=== PATIENT | male | born 1945 | race Caucasian/White ===

== ENCOUNTER → 2019-08-18 | Outpatient (CLI) | payer MEDICARE ==
[~2019-08-18] MED LIST: ACET-2267 PO; ACHD5005 PO; ALBU90AE IH; ASPI-586 PO; BENZ1LOZ61 PO; BISA10SU8 RC; BUDE10.22 IH; CARV6.252 PO; CEPH-507 PO; CLOP75TA69 PO; FURO-125 PO; GUAI600T43 PO; IPRA0.2S51 IH; LORA0.5T PO; LORA10CA PO; MELA1TAB10 PO; MELO15TA39 PO; MOM10U PO; MULT-593 PO; NFCHLORHGL MM; NITR0.4T39 SL; OMEP20CA18 PO; PRAV40TA2 PO; ROPI0.253 PO; SENN8.6T68 PO; TAMS0.4C2 PO
[2019-08-18 13:10] LABS: BILIRUBIN,TOTAL 0.6 MG/DL (0.1-1.0); BUN/CREATININE RATIO 19; CALCIUM 9.1 MG/DL (8.5-10.1); CARBON DIOXIDE 27 MMOL/L (21-32); CHLORIDE 99 MMOL/L (98-107); GFR ESTIMATED > 60; GLUCOSE 108 MG/DL (70-105); POTASSIUM 4.5 MMOL/L (3.6-5.0); SODIUM 135 MMOL/L (135-145)
[2019-08-18 13:11] LABS: ALANINE AMINOTRANSFERASE 18 U/L (0-55); ALKALINE PHOSPHATASE 66 U/L (40-136); TOTAL PROTEIN 6.8 GM/DL (6.4-8.2)
[2019-08-18 15:35] LABS: CHOLESTEROL 166 MG/DL (< 200); HDL CHOLESTEROL 49 MG/DL (40-60); TRIGLYCERIDES 88 MG/DL (<150); VLDL CHOLESTEROL 18 MG/DL (5-40)
== END ==
LOC: LAB FS 10:53
PROVIDERS: ATTEND Family Medicine
DX: E78.00 Pure hypercholesterolemia, unspecified (principal)
CPT/HCPCS: 36415; 80053; 80061

== ENCOUNTER → 2020-02-25 | Outpatient (CLI) | payer MEDICARE ==
[2020-02-25 09:37] LABS: BUN/CREATININE RATIO 20; CARBON DIOXIDE 26 MMOL/L (21-32); CHLORIDE 99 MMOL/L (98-107); CREATININE SERUM 0.84 MG/DL (0.60-1.30); GFR ESTIMATED > 60; GLUCOSE 97 MG/DL (70-105); POTASSIUM 4.3 MMOL/L (3.6-5.0); SODIUM 136 MMOL/L (135-145)
[2020-02-25 09:38] LABS: ALANINE AMINOTRANSFERASE 13 U/L (0-55); ALBUMIN 4.1 GM/DL (3.2-4.5); ALKALINE PHOSPHATASE 75 U/L (40-136); BILIRUBIN,TOTAL 0.4 MG/DL (0.1-1.0); CALCIUM 9.4 MG/DL (8.5-10.1); TOTAL PROTEIN 6.9 GM/DL (6.4-8.2)
[2020-02-25 15:31] LABS: CHOLESTEROL 197 MG/DL (< 200); HDL CHOLESTEROL 52 MG/DL (40-60); TRIGLYCERIDES 62 MG/DL (<150); VLDL CHOLESTEROL 12 MG/DL (5-40)
== END ==
LOC: LAB FS 08:34
PROVIDERS: ATTEND Family Medicine
DX: I10 Essential (primary) hypertension (principal)
CPT/HCPCS: 36415; 80053; 80061

== ENCOUNTER → 2020-08-25 | Outpatient (CLI) | payer MEDICARE ==
[2020-08-25 09:38] LABS: ALANINE AMINOTRANSFERASE 14 U/L (0-55); ALBUMIN 3.9 GM/DL (3.2-4.5); ALKALINE PHOSPHATASE 75 U/L (40-136); BILIRUBIN,TOTAL 0.5 MG/DL (0.1-1.0); BUN/CREATININE RATIO 24; CALCIUM 9.1 MG/DL (8.5-10.1); CARBON DIOXIDE 26 MMOL/L (21-32); CHLORIDE 104 MMOL/L (98-107); CREATININE SERUM 0.72 MG/DL (0.60-1.30); GFR ESTIMATED > 60; GLUCOSE 98 MG/DL (70-105); SODIUM 139 MMOL/L (135-145); TOTAL PROTEIN 6.6 GM/DL (6.4-8.2)
[2020-08-25 14:52] LABS: CHOLESTEROL 127 MG/DL (< 200); HDL CHOLESTEROL 48 MG/DL (40-60); TRIGLYCERIDES 48 MG/DL (<150); VLDL CHOLESTEROL 10 MG/DL (5-40)
== END ==
LOC: LAB FS 08:49
PROVIDERS: ATTEND Family Medicine
DX: I10 Essential (primary) hypertension (principal); E78.5 Hyperlipidemia, unspecified
CPT/HCPCS: 36415; 80053; 80061

== ENCOUNTER 2021-02-07 14:51 | Emergency (ER) | payer MEDICARE ==
[~2021-02-07] VITALS: Ht 175 cm; Wt 68.0 kg
--- NOTE | 2021-02-07 15:32 | ED General ---
General Chief Complaint: Respiratory Problems Stated Complaint: SOB Source of Information: Patient History of Present Illness Date Seen by Provider: Feb 07, 2021 Time Seen by Provider: 15:14 Initial Comments 75-year-old male presenting with complaints of increasing shortness of breath over the last week. He has had cough with productive white sputum. He denies having any fever or chills. He gets more winded with exertion. He has a history of chronic bronchitis. He states that his pulse oximeter he has at home to check his oxygen has been reading in the 88 to 89% range. Since it was continue to read low for him when he came into the emergency department with his symptoms. He denies any ill contacts. He has had no pain in his chest, nausea, vomiting, diarrhea, headache, change in vision. He does use at least 2 inhalers for his breathing. Timing/Duration: 1 Week Severity: Moderate Modifying Factors: worse with Movement Associated Systoms: No Chest Pain; Cough; No Diaphoresis, No Fever/Chills, No Headaches, No Loss of Appetite, No Malaise, No Nausea/Vomiting, No Rash, No Seizure; Shortness of Air; No Syncope, No Weakness Allergies and Home Medications Allergies Coded Allergies: levofloxacin (Verified Allergy, Severe, ANAPHYLAXIS, 03/27/15) Patient Home Medication List Home Medication List Reviewed: Yes Acetaminophen (Tylenol Extra Strength) 500 Mg Tablet, 500 MG PO Q6H PRN for PAIN Prescribed by: RENAY ALFARO on 03/27/15 1207 Albuterol Sulfate (Proair Respiclick) 90 Mcg Aer.pow.ba, 90 MCG IH Q4H PRN for SHORTNESS OF BREATH Prescribed by: RENAY ALFARO on 03/27/15 1207 Aspirin (Aspir 81) 81 Mg Tablet.dr, 81 MG PO DAILY Prescribed by: RENAY ALFARO on 03/27/15 1043 Benzocaine/Menthol (Cepacol Sore Throat Lozenge) 1 Each Lozenge, 3 EACH PO TID PRN for SORE THROAT Prescribed by: RENAY ALFARO on 03/27/15 1207 Bisacodyl (Bisacodyl) 10 Mg Supp.rect, 10 MG RC DAILY PRN for CONSTIPATION Prescribed by: RENAY ALFARO on 03/27/15 1207 Budesonide/Formoterol Fumarate (Symbicort 80-4.5 Mcg Inhaler) 10.2 Gm Hfa.aer.ad, 2 PUFF IH BID Prescribed by: RENAY ALFARO on 03/27/15 120 Carvedilol (Carvedilol) 6.25 Mg Tablet, 6.25 MG PO BID Prescribed by: RENAY ALFARO on 03/27/15 120 Cephalexin (Keflex) 500 Mg Capsule, 500 MG PO TID Prescribed by: RENAY ALFARO on 03/27/15 1349 Chlorhexidine Gluconate (Chlorhexidine Gluconate) 473 Ml Mouthwash, 15 ML MM QID PRN for DRY MOUTH Prescribed by: RENAY ALFARO on 03/27/15 120 Clopidogrel Bisulfate (Plavix) 75 Mg Tablet, 75 MG PO DAILY Prescribed by: RENAY ALFARO on 03/27/15 1043 Furosemide (Lasix) 20 Mg Tablet, 20 MG PO DAILY PRN for DYSPNEA Prescribed by: RENAY ALFARO on 03/27/15 120 Guaifenesin (Mucinex) 600 Mg Tab.er.12h, 600 MG PO BID Prescribed by: RENAY ALFARO on 03/27/15 120 Hydrocodone Bit/Acetaminophen (Lortab 5 Mg Tablet) 1 Each Tablet, 1-2 TAB PO Q4HR PRN for PAIN Prescribed by: RENAY ALFARO on 03/27/15 1349 Ipratropium [place] (Ipratropium [place]) 0.2 Mg/1 Ml Solution, 0.5 MG IH Q4H PRN for SHORTNESS OF BREATH Prescribed by: RENAY ALFARO on 03/27/15 120 Loratadine (Claritin) 10 Mg Capsule, 10 MG PO DAILY Prescribed by: RENAY ALFARO on 03/27/15 120 Lorazepam (Lorazepam) 0.5 Mg Tablet, 0.5-1 TAB PO Q8H PRN for ANXIETY Prescribed by: RENAY ALFARO on 03/27/15 120 Magnesium Hydroxide (Milk of Magnesia) 2,400 Mg/10 Ml Oral.susp, 10 ML PO DAILY Prescribed by: RENAY ALFARO on 03/27/15 1207 Melatonin/Pyridoxine (Melatonin 3 mg Tablet) 1 Each Tablet, 1 EACH PO HS PRN for INSOMNIA Prescribed by: RENAY ALFARO on 03/27/151206 Meloxicam (Meloxicam) 15 Mg Tablet, 15 MG PO DAILY Prescribed by: RENAY ALFARO on 03/27/151206 Multivitamin with Minerals (Multiple Vitamin) 1 Each Tablet, 1 EACH PO DAILY Prescribed by: RENAY ALFARO on 03/27/151206 Nitroglycerin (Nitroglycerin) 0.4 Mg Tab.subl, 0.4 MG SL UD Prescribed by: RENAY ALFARO on 03/27/151206 Omeprazole (Omeprazole) 20 Mg Capsule.dr, 20 MG PO TID Prescribed by: RENAY ALFARO on 03/27/151206 Pravastatin Sodium (Pravastatin Sodium) 40 Mg Tablet, 40 MG PO DAILY Prescribed by: RENAY ALFARO on 03/27/151206 Prednisone (Prednisone) 20 Mg Tab, 40 MG PO DAILY Prescribed by: LIGIA SORENSEN on 02/07/21 1654 Ropinirole HCl (Ropinirole HCl) 0.25 Mg Tablet, 0.25 MG PO HS Prescribed by: RENAY ALFARO on 03/27/15 120 Sennosides (Sennosides) 8.6 Mg Tablet, 8.6 MG PO DAILY Prescribed by: RENAY ALFARO on 03/27/151206 Tamsulosin HCl (Tamsulosin HCl) 0.4 Mg Cap.er.24h, 0.4 MG PO DAILY Prescribed by: RENAY ALFARO on 03/27/151206 Review of Systems Review of Systems Constitutional: No chills, No fever EENTM: no symptoms reported Respiratory: see HPI Cardiovascular: no symptoms reported Gastrointestinal: no symptoms reported Genitourinary: no symptoms reported Musculoskeletal: no symptoms reported Skin: no symptoms reported Psychiatric/Neurological: No Symptoms Reported Past Fdgbxzi-Asdckj-Fnrnxm Hx Patient Social History Tobacco Use?: Yes Smoking Status: Heavy Tobacco Smoker Use of E-Cig and/or Vaping dev: No Substance use?: No Alcohol Use?: Yes Alcohol type: Beer Alcohol Frequency: Daily Past Medical History Respiratory: Yes Chronic Bronchitis Currently Using CPAP: No Currently Using BIPAP: No Reproductive Disorders: No Hiatal Hernia Arthritis Hearing Impairment: Hard of Hearing Skin Anxiety, Depression Adverse Reaction/Blood Tranf: No Family Medical History Cardiovascular disease 19 FATHER 19 MOTHER Diabetes mellitus 19 MOTHER Hypertension 19 MOTHER Neoplasm G8 BROTHER Physical Exam Vital Signs Vital Signs - First Documented 02/07/21 15:23 Temp 36.8 Pulse 63 Resp 24 B/P (MAP) 166/84 (111) Pulse Ox 100 O2 Delivery Room Air Capillary Refill : Height, Weight, BMI Height: 5'9.00" Weight: 152lbs. 9.0oz. 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 Norm as Tested Skin: Normal Color, Warm/Dry Focused Exam Lactate Level 02/07/21 15:05: Lactic Acid Level 0.93 Lactic Acid Level Laboratory Tests Test 02/07/21 15:05 Lactic Acid Level 0.93 MMOL/L (0.50-2.00) Progress/Results/Core Measures Suspected Sepsis SIRS Temperature: Pulse: Respiratory Rate: Laboratory Tests 02/07/21 15:05: White Blood Count 9.6 Blood Pressure / Mean: 02/07/21 15:05: Lactic Acid Level 0.93 Laboratory Tests 02/07/21 15:05: Creatinine 0.86, INR Comment 1.0, Platelet Count 219, Total Bilirubin 0.9 Results/Orders Lab Results Laboratory Tests Test 02/07/21 15:04 02/07/21 15:05 02/07/21 15:18 02/07/21 15:23 Range/Units Influenza Type A (RT-PCR) Not Detected Not Detecte Influenza Type B (RT-PCR) Not Detected Not Detecte SARS-CoV-2 RNA (RT-PCR) Not Detected Not Detecte White Blood Count 9.6 4.3-11.0 10^3/uL Red Blood Count 5.24 4.30-5.52 10^6/uL Hemoglobin 16.5 13.3-17.7 g/dL Hematocrit 49 40-54 % Mean Corpuscular Volume 93 80-99 fL Mean Corpuscular Hemoglobin 31 25-34 pg Mean Corpuscular Hemoglobin Concent 34 32-36 g/dL Red Cell Distribution Width 13.3 10.0-14.5 % Platelet Count 219 130-400 10^3/uL Mean Platelet Volume 9.3 9.0-12.2 fL Immature Granulocyte % (Auto) 1 % Neutrophils (%) (Auto) 65 42-75 % Lymphocytes (%) (Auto) 19 12-44 % Monocytes (%) (Auto) 11 0-12 % Eosinophils (%) (Auto) 4 0-10 % Basophils (%) (Auto) 1 0-10 % Neutrophils # (Auto) 6.2 1.8-7.8 X 10^3 Lymphocytes # (Auto) 1.8 1.0-4.0 X 10^3 Monocytes # (Auto) 1.0 0.0-1.0 X 10^3 Eosinophils # (Auto) 0.4 H 0.0-0.3 10^3/uL Basophils # (Auto) 0.1 0.0-0.1 10^3/uL Immature Granulocyte # (Auto) 0.1 0.0-0.1 10^3/uL Prothrombin Time 13.4 12.2-14.7 SEC INR Comment 1.0 0.8-1.4 Activated Partial Thromboplast Time 32 24-35 SEC Sodium Level 130 L 135-145 MMOL/L Potassium Level 4.5 3.6-5.0 MMOL/L Chloride Level 91 L 98-107 MMOL/L Carbon Dioxide Level 27 21-32 MMOL/L Anion Gap 12 5-14 MMOL/L Blood Urea Nitrogen 17 7-18 MG/DL Creatinine 0.86 0.60-1.30 MG/DL Estimat Glomerular Filtration Rate 87 BUN/Creatinine Ratio 20 Glucose Level 97 70-105 MG/DL Lactic Acid Level 0.93 0.50-2.00 MMOL/L Calcium Level 9.8 8.5-10.1 MG/DL Corrected Calcium 9.5 8.5-10.1 MG/DL Total Bilirubin 0.9 0.1-1.0 MG/DL Aspartate Amino Transf (AST/SGOT) 22 5-34 U/L Alanine Aminotransferase (ALT/SGPT) 15 0-55 U/L Alkaline Phosphatase 100 40-136 U/L Troponin I < 0.30 <0.30 NG/ML C-Reactive Protein 3.07 H <0.50 MG/DL Pro-B-Type Natriuretic Peptide 428.2 H <75.0 PG/ML Total Protein 8.2 6.4-8.2 GM/DL Albumin 4.4 3.2-4.5 GM/DL Blood Gas Puncture Site L RADIAL Blood Gas Patient Temperature 36.3 Arterial Blood pH 7.43 7.37-7.43 Arterial Blood Partial Pressure CO2 42 35-45 MMHG Arterial Blood Partial Pressure O2 59 L 79-93 MMHG Arterial Blood HCO3 28 H 23-27 MMOL/L Arterial Blood Total CO2 29.2 21.0-31.0 MMOL/L Arterial Blood Oxygen Saturation 91 L 94-100 % Arterial Blood Base Excess 3.2 H -2.5-2.5 MMOL/L Yakov Test YES-POS Blood Gas Ventilator Setting NO Blood Gas Inspired Oxygen ROOM AIR Urine Color ORANGE Urine Clarity CLEAR Urine pH 5.5 5-9 Urine Specific [place] 1.015 L 1.016-1.022 Urine Protein TRACE H NEGATIVE Urine Glucose (UA) NEGATIVE NEGATIVE Urine Ketones 1+ H NEGATIVE Urine Nitrite NEGATIVE NEGATIVE Urine Bilirubin NEGATIVE NEGATIVE Urine Urobilinogen 0.2 < = 1.0 MG/DL Urine Leukocyte Esterase NEGATIVE NEGATIVE Urine RBC (Auto) 3+ H NEGATIVE Urine RBC 5-10 H /HPF Urine WBC 0-2 /HPF Urine Squamous Epithelial Cells 0-2 /HPF Urine Crystals NONE /LPF Urine Bacteria NEGATIVE /HPF Urine Casts PRESENT /LPF Urine Hyaline Casts 2-5 H /LPF Urine Mucus MODERATE H /LPF Urine Culture Indicated NO My Orders Orders - LIGIA SORENSEN MD Monitor-Rhythm Ecg Trace Only (02/07/21 15:19) Ed Iv/Invasive Line Start (02/07/21 15:19) Cbc With Automated Diff (02/07/21 15:19) Comprehensive Metabolic Panel (02/07/21 15:19) Crp Fs (02/07/21 15:19) Troponin I Fs (02/07/21 15:19) Protime With Inr (02/07/21 15:19) Partial Thromboplastin Time (02/07/21 15:19) Ekg Tracing (02/07/21 15:19) Arterial Blood Gas (02/07/21 15:19) Covid 19 Inhouse Test (02/07/21 15:19) Influenza A And B By Pcr (02/07/21 15:19) Blood Culture (02/07/21 15:21) Lactic Acid Analyzer (02/07/21 15:21) Chest 1 View Ap/Pa Only (02/07/21 15:21) Ua Culture If Indicated (02/07/21 15:25) Sputum Culture (02/07/21 15:25) Probnp Fs (02/07/21 15:19) Vital Signs/I&O 02/07/21 02/07/21 15:23 17:40 Temp 36.8 Pulse 63 Resp 24 66 B/P (MAP) 166/84 (111) 143/65 Pulse Ox 100 99 O2 Delivery Room Air Capillary Refill : Progress Note #1: Progress Note Obtain basic labs including blood cultures and lactic acid. ABG since he reports low oxygen saturations although are O2 sat on his forehead was reading 100%. Chest x-ray to evaluate for pneumonia. Covid swab and influenza swab to check for infection. Cardiac enzymes including an EKG to evaluate his heart. Differential diagnosis includes COPD exacerbation, pneumonia, Covid, upper respiratory infection, viral syndrome, myocardial infarction, CHF Progress Note #2: Progress Note CBC and chemistry appear stable without acute signs of sepsis or overwhelming infection. The sodium was slightly low at 130. He does have an elevated CRP. His troponin was negative. His proBNP was slightly elevated but when age- adjusted is normal. He has no acute infiltrate on his chest x-ray. His EKG shows a sinus rhythm without ectopy or ischemia. His urine did not show signs of infection. His blood gas had a normal pH of 7.43 with pCO2 of 42, pO2 of 59 for O2 sat 91%. He continues to show 99-100% on room air for his pulse oximetry. Influenza and Covid are pending. This may be more COPD exacerbation and would improve with steroid but no definite sign of infection. Progress Note #3: Progress Note Patient counseled on results and continues to be 98 to 100% on room air in the emergency department. Will discharge to home with a steroid burst prescribed. Advised to continue his Combivent and Breo. Check back with the clinic for continued concerns and problems. Return to the ER for worsening symptoms or concerns ECG Initial ECG Impression Date: Feb 07, 2021 Initial ECG Impression Time: 15:14 Initial ECG Rate: 60 Initial ECG Rhythm: Normal Sinus Initial ECG Comparisson: No Previous ECG Available Comment Normal sinus rhythm with a heart rate of [address] interval 152 ms. QT interval 434 ms with a QTc interval 434 ms. There is no acute ST elevation. There is no prior tracing available for comparison. Diagnostic Imaging Diagonstic Imaging: Xray Plain Films/CT/US/NM/MRI: chest Comments [facility] [place], [place] NAME: WONG DELATORRE [facility] REC#: [id number] PT STATUS: REG ER : 1945 PHYSICIAN: LIGIA SORENSEN MD ADMIT DATE: 02/07/21/ER FS Draft Date of Exam:02/07/21 CHEST 1 VIEW AP/PA ONLY EXAMINATION: Chest, one view. HISTORY: Cough, COVID. COMPARISON: None available. FINDINGS: Heart size and pulmonary vasculature are normal. There is elevation of the left hemidiaphragm. Minimal left basilar atelectasis. No consolidation, pleural effusion, or pneumothorax. The osseous structures are intact. IMPRESSION: 1. No acute radiographic abnormality in the chest. Dictated on workstation # [id number] Dict: 02/07/21 1532 Trans: 02/07/21 1534 [id number] Interpreted by: DIPIKA MARCELO DO Electronically signed by: Reviewed: Reviewed by Me Departure Impression Primary Impression: Dyspnea on exertion Additional Impression: Chronic bronchitis with acute exacerbation Disposition: 01 HOME, SELF-CARE Condition: Stable Departure-Patient Inst. Decision time for Depature: 16:52 Referrals: HARI CARLSON MD (PCP/Family) Primary Care Physician Patient Instructions: Chronic Bronchitis (DC), Shortness of Breath, Adult ED Add. Discharge Instructions: Continue on your home medicines. Use the steroid to help with cough and shortness of breath. Check back with clinic about continued symptoms and if you take the steroid to see when you could get your Covid booster. Use plain Mucinex to help loosen cough and congestion to help with your breathing. When checking your oxygen level with the pulse oximetry, make sure your fingers and hands are warm and you are getting good circulation to get the most accurate reading. All discharge instructions reviewed with patient and/or family. Voiced understanding. Scripts Prednisone (Prednisone) 20 Mg Tab 40 MG PO DAILY for bronchitis exacerbation for 5 Days, #10 TAB 0 Refills Prov: LIGIA SORENSEN MD 02/07/21 LIGIA SORENSEN MD Feb 07, 2021 15:32
--- NOTE | 2021-02-07 15:35 | Diagnostic Imaging Report ---
EXAMINATION: Chest, one view. HISTORY: Cough, COVID. COMPARISON: None available. FINDINGS: Heart size and pulmonary vasculature are normal. There is elevation of the left hemidiaphragm. Minimal left basilar atelectasis. No consolidation, pleural effusion, or pneumothorax. The osseous structures are intact. IMPRESSION: 1. No acute radiographic abnormality in the chest. Dictated by: Dictated on workstation # [id number]
[2021-02-07 15:39] LABS: ABG BASE EXCESS 3.2 MMOL/L (-2.5-2.5); ABG OXYGEN SATURATION 91 % (94-100); ABG PCO2 42 MMHG (35-45); ABG PH 7.43 (7.37-7.43); ABG PO2 59 MMHG (79-93); ABG TCO2 29.2 MMOL/L (21.0-31.0); ALLENS TEST YES-POS
[2021-02-07 15:40] LABS: INSPIRED O2 ROOM AIR; PATIENT TEMP 36.3; VENTILATOR NO
[2021-02-07 16:00] LABS: BASOPHILS % (AUTO) 1 % (0-10); EOSINOPHILS % (AUTO) 4 % (0-10); HEMATOCRIT 49 % (40-54); HEMOGLOBIN 16.5 g/dL (13.3-17.7); LYMPHOCYTES # (AUTO) 1.8 X 10^3 (1.0-4.0); LYMPHOCYTES % (AUTO) 19 % (12-44); MEAN CORPUSCULAR HEMOGLOBIN 31 pg (25-34); MEAN CORPUSCULAR HGB CONC 34 g/dL (32-36); MEAN CORPUSCULAR VOLUME 93 fL (80-99); MEAN PLATELET VOLUME 9.3 fL (9.0-12.2); MONOCYTES % (AUTO) 11 % (0-12); NEUTROPHILS # (AUTO) 6.2 X 10^3 (1.8-7.8); NEUTROPHILS % (AUTO) 65 % (42-75); PLATELET COUNT 219 10^3/uL (130-400); WHITE BLOOD COUNT 9.6 10^3/uL (4.3-11.0)
[2021-02-07 16:01] LABS: CLARITY,URINE CLEAR; COLOR,URINE ORANGE; PH,URINE 5.5 (5-9)
[2021-02-07 16:01] LABS: BASOPHILS # (AUTO) 0.1 10^3/uL (0.0-0.1); EOSINOPHILS # (AUTO) 0.4 10^3/uL (0.0-0.3); PROTHROMBIN TIME PATIENT 13.4 SEC (12.2-14.7)
[2021-02-07 16:02] LABS: BACTERIA,URINE NEGATIVE /HPF; BILIRUBIN,URINE NEGATIVE (NEGATIVE); GLUCOSE, URINE (UA) NEGATIVE (NEGATIVE); KETONES,URINE 1+ (NEGATIVE); LEUKOCYTE ESTERASE ,URINE NEGATIVE (NEGATIVE); NITRITE,URINE NEGATIVE (NEGATIVE); PROTEIN,URINE TRACE (NEGATIVE); SQUAMOUS EPITHELIAL CELL,UR 0-2 /HPF; WBC,URINE 0-2 /HPF
[2021-02-07 16:03] LABS: ALANINE AMINOTRANSFERASE 15 U/L (0-55); ALKALINE PHOSPHATASE 100 U/L (40-136); BILIRUBIN,TOTAL 0.9 MG/DL (0.1-1.0); BUN/CREATININE RATIO 20; CALCIUM 9.8 MG/DL (8.5-10.1); CARBON DIOXIDE 27 MMOL/L (21-32); CHLORIDE 91 MMOL/L (98-107); CREATININE SERUM 0.86 MG/DL (0.60-1.30); GFR ESTIMATED 87; GLUCOSE 97 MG/DL (70-105); POTASSIUM 4.5 MMOL/L (3.6-5.0); SODIUM 130 MMOL/L (135-145)
[2021-02-07 16:04] LABS: ALBUMIN 4.4 GM/DL (3.2-4.5); TOTAL PROTEIN 8.2 GM/DL (6.4-8.2)
[2021-02-07] MEDS ORDERED: PRD20T PO (16:54)
[2021-02-07 17:40] VITALS: BP 143/65
== END 2021-02-07 17:00 | disposition home or self-care (01) ==
LOC: EDUNIT# 14:51 → ER FS 14:52
DX: R06.09 Other forms of dyspnea (principal); J44.1 Chronic obstructive pulmonary disease with (acute) exacerbation; F41.9 Anxiety disorder, unspecified; F17.290 Nicotine dependence, other tobacco product, uncomplicated; Z20.822 Contact with and (suspected) exposure to COVID-19; Z79.01 Long term (current) use of anticoagulants; Z79.82 Long term (current) use of aspirin; Z79.899 Other long term (current) drug therapy
CPT/HCPCS: 36415; 71045; 80053; 81000; 82805; 83605; 83880; 84484; 85025; 85610; 85730; 86141; 87040; 87070; 87077; 87186; 87205; 87636; 93005

== ENCOUNTER → 2021-02-28 | Outpatient (CLI) | payer MEDICARE ==
[~2021-02-28] MED LIST changes: +PRD20T PO
[2021-02-28 11:49] LABS: ALBUMIN 3.8 GM/DL (3.2-4.5); BILIRUBIN,TOTAL 0.8 MG/DL (0.1-1.0); CALCIUM 9.4 MG/DL (8.5-10.1); CREATININE SERUM 0.77 MG/DL (0.60-1.30); POTASSIUM 4.1 MMOL/L (3.6-5.0); TOTAL PROTEIN 7.4 GM/DL (6.4-8.2)
== END ==
LOC: LAB FS 10:09
PROVIDERS: ATTEND Family Medicine
DX: I10 Essential (primary) hypertension (principal)
CPT/HCPCS: 36415; 80053; 80061

== ENCOUNTER 2023-01-17 22:10 | Emergency (ER) | payer MEDICARE ==
[~2023-01-17] VITALS: Ht 172.7 cm; Wt 65.1 kg
[~2023-01-17 22:10] MED LIST changes: -BENZ1LOZ61 PO; +BENZ1LOZ74 PO; +CLOP-31 PO; -CLOP75TA69 PO; -ROPI0.253 PO; +ROPI0.2533 PO
[2023-01-17 22:44] LABS: BASOPHILS # (AUTO) 0.1 10^3/uL (0.0-0.1); BASOPHILS % (AUTO) 1 % (0-10); EOSINOPHILS # (AUTO) 0.3 10^3/uL (0.0-0.3); EOSINOPHILS % (AUTO) 4 % (0-10); HEMATOCRIT 49 % (40-54); HEMOGLOBIN 16.3 g/dL (13.3-17.7); LYMPHOCYTES # (AUTO) 1.6 10^3/uL (1.0-4.0); LYMPHOCYTES % (AUTO) 24 % (12-44); MEAN CORPUSCULAR HEMOGLOBIN 32 pg (25-34); MEAN CORPUSCULAR HGB CONC 33 g/dL (32-36); MEAN CORPUSCULAR VOLUME 94 fL (80-99); MEAN PLATELET VOLUME 8.7 fL (9.0-12.2); MONOCYTES # (AUTO) 0.7 10^3/uL (0.0-1.0); MONOCYTES % (AUTO) 11 % (0-12); NEUTROPHILS # (AUTO) 3.8 10^3/uL (1.8-7.8); NEUTROPHILS % (AUTO) 59 % (42-75); PLATELET COUNT 194 10^3/uL (130-400); WHITE BLOOD COUNT 6.5 10^3/uL (4.3-11.0)
[2023-01-17] MEDS ORDERED: NS 100 ML (IVPB) BAG IV ONE (22:45)
[2023-01-17] MEDS ORDERED: HOLD METFORMIN - RECEIVED CONTRAST 20 ML VIAL IV SCH (22:45)
[2023-01-17] MEDS ORDERED: IOHEXOL 350 MG/ML 100 ML (OMNIPAQUE 350) VIAL IV ONE (22:45)
--- NOTE | 2023-01-17 22:45 | ED General ---
General Stated Complaint: COUGHING UP BLOOD Source of Information: Patient Exam Limitations: No Limitations History of Present Illness Date Seen by Provider: Jan 17, 2023 Time Seen by Provider: 22:13 Initial Comments 77-year-old male with past medical history of CAD with stenting on Plavix and prior lung cancer status post radiation coming in due to hemoptysis. Started coughing up blood on Sunday, its increased in amount and frequency since then. Does feel more short of breath as well which is unusual for him. Denies any chest pain, fever, lower extremity swelling or pain, recent surgery, prior history of DVT or PE, or any other concerns. This is never occurred before. Allergies and Home Medications Allergies Coded Allergies: levofloxacin (Verified Allergy, Severe, ANAPHYLAXIS, 03/27/15) Patient Home Medication List Home Medication List Reviewed: Yes Acetaminophen (Tylenol Extra Strength) 500 Mg Tablet, 500 MG PO Q6H PRN for PAIN Prescribed by: RENAY ALFARO on 03/27/15 1207 Albuterol Sulfate (Proair Respiclick) 90 Mcg Aer.pow.ba, 90 MCG IH Q4H PRN for SHORTNESS OF BREATH Prescribed by: RENAY ALFARO on 03/27/15 1207 Aspirin (Aspir 81) 81 Mg Tablet.dr, 81 MG PO DAILY Prescribed by: RENAY ALFARO on 03/27/15 1043 Benzocaine/Menthol (Cepacol Sore Throat Lozenge) 1 Each Lozenge, 3 EACH PO TID PRN for SORE THROAT Prescribed by: RENAY ALFARO on 03/27/15 1207 Bisacodyl (Bisacodyl) 10 Mg Supp.rect, 10 MG RC DAILY PRN for CONSTIPATION Prescribed by: RENAY ALFARO on 03/27/15 1207 Budesonide/Formoterol Fumarate (Symbicort 80-4.5 Mcg Inhaler) 10.2 Gm Hfa.aer.ad, 2 PUFF IH BID Prescribed by: RENAY ALFARO on 03/27/15 1207 Carvedilol (Carvedilol) 6.25 Mg Tablet, 6.25 MG PO BID Prescribed by: RENAY ALFARO on 03/27/15 1207 Cephalexin (Keflex) 500 Mg Capsule, 500 MG PO TID Prescribed by: RENAY ALFARO on 03/27/15 1349 Chlorhexidine Gluconate (Chlorhexidine Gluconate) 473 Ml Mouthwash, 15 ML MM QID PRN for DRY MOUTH Prescribed by: RENAY ALFARO on 03/27/15 120 Clopidogrel Bisulfate (Plavix) 75 Mg Tablet, 75 MG PO DAILY Prescribed by: RENAY ALFARO on 03/27/15 1043 Furosemide (Lasix) 20 Mg Tablet, 20 MG PO DAILY PRN for DYSPNEA Prescribed by: RENAY ALFARO on 03/27/15 120 Guaifenesin (Mucinex) 600 Mg Tab.er.12h, 600 MG PO BID Prescribed by: RENAY ALFARO on 03/27/15 120 Hydrocodone Bit/Acetaminophen (Lortab 5 Mg Tablet) 1 Each Tablet, 1-2 TAB PO Q4HR PRN for PAIN Prescribed by: RENAY ALFARO on 03/27/15 134 Ipratropium [place] (Ipratropium [place]) 0.2 Mg/1 Ml Solution, 0.5 MG IH Q4H PRN for SHORTNESS OF BREATH Prescribed by: RENAY ALFARO on 03/27/15 120 Loratadine (Claritin) 10 Mg Capsule, 10 MG PO DAILY Prescribed by: RENAY ALFARO on 03/27/15 120 Lorazepam (Lorazepam) 0.5 Mg Tablet, 0.5-1 TAB PO Q8H PRN for ANXIETY Prescribed by: RENAY ALFARO on 03/27/15 120 Magnesium Hydroxide (Milk of Magnesia) 2,400 Mg/10 Ml Oral.susp, 10 ML PO DAILY Prescribed by: RENAY ALFARO on 03/27/15 120 Melatonin/Pyridoxine (Melatonin 3 mg Tablet) 1 Each Tablet, 1 EACH PO HS PRN for INSOMNIA Prescribed by: RENAY ALFARO on 03/27/15 120 Meloxicam (Meloxicam) 15 Mg Tablet, 15 MG PO DAILY Prescribed by: RENAY ALFARO on 03/27/15 120 Multivitamin with Minerals (Multiple Vitamin) 1 Each Tablet, 1 EACH PO DAILY Prescribed by: RENAY ALFARO on 03/27/15 120 Nitroglycerin (Nitroglycerin) 0.4 Mg Tab.subl, 0.4 MG SL UD Prescribed by: RENAY ALFARO on 03/27/15 120 Omeprazole (Omeprazole) 20 Mg Capsule.dr, 20 MG PO TID Prescribed by: RENAY ALFARO on 03/27/15 120 Pravastatin Sodium (Pravastatin Sodium) 40 Mg Tablet, 40 MG PO DAILY Prescribed by: RENAY ALFARO on 03/27/15 120 Prednisone (Prednisone) 20 Mg Tab, 40 MG PO DAILY Prescribed by: LIGIA SORENSEN on 02/07/21 1654 Ropinirole HCl (Ropinirole HCl) 0.25 Mg Tablet, 0.25 MG PO HS Prescribed by: RENAY ALFARO on 03/27/15 120 Sennosides (Sennosides) 8.6 Mg Tablet, 8.6 MG PO DAILY Prescribed by: RENAY ALFARO on 03/27/15 120 Tamsulosin HCl (Tamsulosin HCl) 0.4 Mg Cap.er.24h, 0.4 MG PO DAILY Prescribed by: RENAY ALFARO on 03/27/15 120 Review of Systems Review of Systems Constitutional: No fever EENTM: no symptoms reported Respiratory: see HPI Cardiovascular: no symptoms reported Gastrointestinal: no symptoms reported Genitourinary: no symptoms reported Musculoskeletal: no symptoms reported Skin: no symptoms reported Psychiatric/Neurological: No Symptoms Reported Hematologic/Lymphatic: No Symptoms Reported Past Gylojzf-[id number]-Xifjaw Hx Patient Social History Tobacco Use?: Yes Past Medical History Surgery/Hospitalization HX: jaw cancer s/p removal and replacement, left sided lung cancer s/p radiation Surgeries: Yes Respiratory: Yes Chronic Bronchitis Currently Using CPAP: No Currently Using BIPAP: No Reproductive Disorders: No Hiatal Hernia Arthritis Hearing Impairment: Hard of Hearing Skin Anxiety, Depression Adverse Reaction/Blood Tranf: No Family Medical History Cardiovascular disease 19 FATHER 19 MOTHER Diabetes mellitus 19 MOTHER Hypertension 19 MOTHER Neoplasm G8 BROTHER Physical Exam Vital Signs Vital Signs - First Documented 01/17/23 01/17/23 22:19 23:08 Temp 36.5 Pulse 80 Resp 16 B/P (MAP) 157/74 (101) Pulse Ox 92 O2 Delivery Room Air O2 Flow Rate 5.00 Capillary Refill : Height, Weight, BMI Height: 5'9.00" Weight: 152lbs. 9.0oz. [id number]; 22.00 BMI Method: General Appearance: Other (Chronically ill-appearing and then) Eyes: Bilateral Eye Normal Inspection HEENT: PERRL/EOMI, Normal ENT Inspection, Pharynx Normal Neck: Full Range of Motion, Normal Inspection, Non Tender, Supple Respiratory: Chest Non Tender, No Accessory Muscle Use, No Respiratory Distress, Crackles Cardiovascular: Regular Rate, Rhythm, No Edema, Normal Peripheral Pulses Gastrointestinal: Normal Bowel Sounds, Non Tender, Soft; No Distended, No Guarding Back: Normal Inspection, No CVA Tenderness Extremity: Normal Capillary Refill, Normal Inspection, Normal Range of Motion, Non Tender, No Calf Tenderness, No Pedal Edema Neurologic/Psychiatric: Alert, No Motor/Sensory Deficits, Normal Mood/Affect Skin: Normal Color, Warm/Dry Progress/Results/Core Measures Suspected Sepsis SIRS Temperature: Pulse: Respiratory Rate: Laboratory Tests 01/17/23 22:35: White Blood Count 6.5 Blood Pressure / Mean: Laboratory Tests 01/17/23 22:35: Creatinine 0.86, INR Comment 1.0, Platelet Count 194, Total Bilirubin 0.6 Results/Orders Lab Results Laboratory Tests Test 01/17/23 22:35 Range/Units White Blood Count 6.5 4.3-11.0 10^3/uL Red Blood Count 5.18 4.30-5.52 10^6/uL Hemoglobin 16.3 13.3-17.7 g/dL Hematocrit 49 40-54 % Mean Corpuscular Volume 94 80-99 fL Mean Corpuscular Hemoglobin 32 25-34 pg Mean Corpuscular Hemoglobin Concent 33 32-36 g/dL Red Cell Distribution Width 13.8 10.0-14.5 % Platelet Count 194 130-400 10^3/uL Mean Platelet Volume 8.7 L 9.0-12.2 fL Immature Granulocyte % (Auto) 1 % Neutrophils (%) (Auto) 59 42-75 % Lymphocytes (%) (Auto) 24 12-44 % Monocytes (%) (Auto) 11 0-12 % Eosinophils (%) (Auto) 4 0-10 % Basophils (%) (Auto) 1 0-10 % Neutrophils # (Auto) 3.8 1.8-7.8 10^3/uL Lymphocytes # (Auto) 1.6 1.0-4.0 10^3/uL Monocytes # (Auto) 0.7 0.0-1.0 10^3/uL Eosinophils # (Auto) 0.3 0.0-0.3 10^3/uL Basophils # (Auto) 0.1 0.0-0.1 10^3/uL Immature Granulocyte # (Auto) 0.0 0.0-0.1 10^3/uL Prothrombin Time 13.2 12.2-14.7 SEC INR Comment 1.0 0.8-1.4 Activated Partial Thromboplast Time 29 24-35 SEC D-Dimer 1.53 H 0.00-0.49 UG/ML Sodium Level 135 135-145 MMOL/L Potassium Level 3.9 3.6-5.0 MMOL/L Chloride Level 98 98-107 MMOL/L Carbon Dioxide Level 28 21-32 MMOL/L Anion Gap 9 5-14 MMOL/L Blood Urea Nitrogen 13 7-18 MG/DL Creatinine 0.86 0.60-1.30 MG/DL Estimat Glomerular Filtration Rate 89 BUN/Creatinine Ratio 15 Glucose Level 118 H 70-105 MG/DL Calcium Level 9.5 8.5-10.1 MG/DL Corrected Calcium 9.2 8.5-10.1 MG/DL Magnesium Level 2.2 1.6-2.4 MG/DL Total Bilirubin 0.6 0.1-1.0 MG/DL Aspartate Amino Transf (AST/SGOT) 22 5-34 U/L Alanine Aminotransferase (ALT/SGPT) 18 0-55 U/L Alkaline Phosphatase 96 40-136 U/L Troponin I < 0.30 <0.30 NG/ML Pro-B-Type Natriuretic Peptide 244.7 <450.0 PG/ML Total Protein 7.8 6.4-8.2 GM/DL Albumin 4.4 3.2-4.5 GM/DL My Orders Orders - ANGIE MORENO MD Cbc And Automated Diff (01/17/23 22:33) Comprehensive Metabolic Panel (01/17/23 22:33) Fibrin Degradation Products (01/17/23 22:33) Magnesium (01/17/23 22:33) Protime With Inr (01/17/23 22:33) Partial Thromboplastin Time (01/17/23 22:33) Probnp Fs (01/17/23 22:33) Troponin I Fs (01/17/23 22:33) Ct Angio Chest W (R/O Pe) (01/17/23 22:33) Ed Iv/Invasive Line Start (01/17/23 22:33) Ekg Tracing (01/17/23 22:33) Iohexol Injection (Omnipaque 350 Mg/Ml 1 (01/17/23 22:45) Received Contrast (Hold Metformin- Contr (01/17/23 22:45) Ns (Ivpb) 100 Ml (Sodium Chloride 0.9% 1 (01/17/23 22:45) Ua Culture If Indicated (01/17/23 23:00) Tranexamic Acid Injection (Tranexamic Ac (01/17/23 23:15) Lorazepam Injection (Lorazepam Injection (01/17/23 23:20) Medications Given in ED Current Medications Medications Dose Ordered Sig/Ruma Route Start Time Stop Time Status Last Admin Dose Admin Iohexol 100 ml ONCE ONCE IV 01/17/23 22:45 01/17/23 22:46 DC 01/17/23 23:06 80 ML Sodium Chloride 100 ml ONCE ONCE IV 01/17/23 22:45 01/17/23 22:46 DC 01/17/23 23:06 100 ML Tranexamic Acid 500 mg ONCE ONCE NA 01/17/23 23:15 01/17/23 23:18 DC 01/17/23 23:32 500 MG Vital Signs/I&O 01/17/23 01/17/23 22:19 23:08 Temp 36.5 Pulse 80 Resp 16 B/P (MAP) 157/74 (101) Pulse Ox 92 O2 Delivery Room Air Nasal Cannula O2 Flow Rate 5.00 Capillary Refill : Progress Note : Progress Note 77-year-old male with above history coming in due to hemoptysis. His oxygen saturation was 80% on arrival. He quickly was turned up to 7 L to get his oxygen around 89% which is new for the patient. He did have numerous episodes of hemoptysis of bright red blood essentially every time we were in the room. He is coughing up blood at least every couple minutes if not sooner. An IV was placed and basic labs were obtained including cardiac biomarkers. His white blood cell count normal, platelets normal, normal creatinine, INR normal, D- dimer 1.5 which is elevated, negative troponin, normal BNP. EKG ordered and interpreted by me showing no acute ischemic changes. CTA chest ordered and interpreted by me showing no obvious pneumonia, no pneumothorax, no large PE. He does have findings of emphysema. We will trial nebulized TXA. He also normally takes a benzodiazepine at nighttime, he was given IV Ativan since he is very anxious about this. I contacted [facility] to discuss transfer not only for his continuity of care, but also because he likely will need a stove installer and potentially interventional radiology which is beyond the scope of our local hospital. [facility] called back and Dr. Dona Nicole excepted the patient to transfer to their medical intensive care unit. He was on 7 L at the time of transfer. I discussed with the patient he may be leading towards intubation, however right n ow he is able to clear his own airway and I believe is stable enough to not be intubated at this time. ECG Initial ECG Impression Date: Jan 17, 2023 Initial ECG Impression Time: 22:52 Initial ECG Rate: 75 Initial ECG Rhythm: Normal Sinus Comment Narrow QRS, normal axis, no STEMI Diagnostic Imaging Diagonstic Imaging: CT (CTA chest) Departure Impression Primary Impression: Hemoptysis Additional Impression: Respiratory failure Qualified Codes: J96.01 - Acute respiratory failure with hypoxia Disposition: XFER [facility] Condition: Stable Admissions Decision to Admit/Date: Jan 17, 2023 Time/Decision to Admit Time: 23:10 Transfer Transfer Reason: Exceeds level of care Time Spoke to Accepting Phy: 23:35 Transfer Progress Notes Accepted to [facility] Transfer Facility: [facility] Method of Transfer: Air Departure-Patient Inst. Referrals: HARI CARLSON MD (PCP/Family) Primary Care Physician ANGIE MORENO MD Jan 17, 2023 22:45
[2023-01-17 22:55] LABS: POTASSIUM 3.9 MMOL/L (3.6-5.0)
[2023-01-17 23:02] LABS: ALANINE AMINOTRANSFERASE 18 U/L (0-55); ALBUMIN 4.4 GM/DL (3.2-4.5); ALKALINE PHOSPHATASE 96 U/L (40-136); BILIRUBIN,TOTAL 0.6 MG/DL (0.1-1.0); BUN/CREATININE RATIO 15; CALCIUM 9.5 MG/DL (8.5-10.1); CARBON DIOXIDE 28 MMOL/L (21-32); CHLORIDE 98 MMOL/L (98-107); CREATININE SERUM 0.86 MG/DL (0.60-1.30); GFR ESTIMATED 89; GLUCOSE 118 MG/DL (70-105); MAGNESIUM 2.2 MG/DL (1.6-2.4); SODIUM 135 MMOL/L (135-145); TOTAL PROTEIN 7.8 GM/DL (6.4-8.2)
[2023-01-17 23:05] LABS: FIBRIN DEGRADATION PRODUCTS 1.53 UG/ML (0.00-0.49); PROTHROMBIN TIME PATIENT 13.2 SEC (12.2-14.7)
[2023-01-17] MEDS ORDERED: TRANEXAMIC ACID 100 MG/ML 10 ML INJECTION ONE (23:15)
[2023-01-17 23:45] LABS: BILIRUBIN,URINE NEGATIVE (NEGATIVE); CLARITY,URINE CLEAR; COLOR,URINE YELLOW; GLUCOSE, URINE (UA) NEGATIVE (NEGATIVE); KETONES,URINE NEGATIVE (NEGATIVE); LEUKOCYTE ESTERASE ,URINE NEGATIVE (NEGATIVE); NITRITE,URINE NEGATIVE (NEGATIVE); PH,URINE 7.5 (5-9); PROTEIN,URINE TRACE (NEGATIVE)
[2023-01-17 23:54] LABS: BACTERIA,URINE NEGATIVE /HPF; SQUAMOUS EPITHELIAL CELL,UR RARE /HPF; WBC,URINE RARE /HPF
[2023-01-17 23:55] LABS: HYALINE CASTS, URINE RARE /LPF
[2023-01-18 00:30] VITALS: BP 168/95
--- NOTE | 2023-01-18 07:47 | Diagnostic Imaging Report ---
INDICATION: hemoptysis (>1 cup), prior lung cancer s/p radiation. TECHNIQUE: CT imaging the chest following administration of intravenous contrast. Multiplanar including MIPS reformatted images. Auto Exposure Controls were utilized during the CT exam to meet ALARA standards for radiation dose reduction. . CORRELATION STUDY: None FINDINGS: Heart size mildly enlarged but without disproportionate right heart strain. Scattered coronary calcification. There is moderate calcification thoracic aorta, nonaneurysmal. No dissection. No pathologic enlarged mediastinal lymph nodes. There is no pulmonary artery filling defects to suggest pulmonary embolism. Asymmetric elevated left diaphragm. Severely advanced centrilobular emphysematous lung disease. Likely minimal scarring or atelectasis the left lower lobe. Minimal areas of bronchial wall thickening. No consolidating infiltrate or suspicious pulmonary mass. Visualized portion upper abdomen demonstrate a prominent right renal cyst. Thoracic spine unremarkable. IMPRESSION: 1. No CT evidence for acute pulmonary embolism. 2. Rather advanced centrilobular emphysematous lung disease. No focal areas of consolidation. Initial report was provided by [employer]. Dictated by: Dictated on workstation # [id number]
== END 2023-01-18 00:30 | disposition short-term general hospital (02) ==
LOC: EDUNIT# 22:10 → ER FS 22:11
DX: J96.90 Respiratory failure, unspecified, unspecified whether with hypoxia or hypercapnia (principal); R04.2 Hemoptysis; R79.89 Other specified abnormal findings of blood chemistry; I25.10 Atherosclerotic heart disease of native coronary artery without angina pectoris; Z79.02 Long term (current) use of antithrombotics/antiplatelets
CPT/HCPCS: 36415; 71275; 80053; 81000; 83735; 83880; 84484; 85025; 85379; 85610; 85730; 93005; 94640; Q9967